=== PATIENT | female | born 1980 | race Hispanic/Latino ===

== ENCOUNTER 2017-06-24 15:15 | Emergency (ER) | payer OTHER ==
[~2017-06-24] VITALS: Ht 152.4 cm; Wt 81.6 kg
[2017-06-24] MEDS ORDERED: ACETAMINOPHEN 325 MG/10 ML UDC PO PRN (15:45)
[2017-06-24] MEDS ORDERED: ACETAMINOPHEN 325 MG TAB ONE (19:27)
[2017-06-24] MEDS ORDERED: SODIUM CHLORIDE 0.9% 1000ML 1,000 ML IV SCH (19:30)
[2017-06-24 19:43] LABS: BASOPHILS % 0.2 % (0.0-1.0); EOSINOPHILS # (AUTO) 0.1 (0.0-0.4); EOSINOPHILS % 0.6 % (0.0-6.0); HEMATOCRIT 38.9 % (34.2-44.1); HEMOGLOBIN 12.4 g/dL (12.0-16.0); LYMPHOCYTES # (AUTO) 1.9 (1.0-3.2); LYMPHOCYTES % 21.8 % (18.0-39.1); MEAN CORPUSCULAR HEMOGLOBIN 25.1 pg (28-32); MEAN CORPUSCULAR HGB CONC 31.9 g/dL (31-35); MEAN CORPUSCULAR VOLUME 78.6 fL (81-99); MONOCYTES # (AUTO) 0.8 (0.2-0.8); MONOCYTES % 9.5 % (4.4-11.3); NEUTROPHILS # (AUTO) 5.8 (2.1-6.9); NEUTROPHILS % 67.3 % (38.7-80.0); PLATELET COUNT 279 x10e3/uL (140-360); RED BLOOD COUNT 4.95 x10e6/uL (3.6-5.1); RED CELL DISTRIBUTION WIDTH 14.6 % (11.7-14.4)
[2017-06-24 20:03] LABS: ALANINE AMINOTRANSFERASE 68 IU/L (0-55); ALBUMIN 3.5 g/dL (3.5-5.0); ALBUMIN/GLOBULIN RATIO 0.8 (0.8-2.0); ALKALINE PHOSPHATASE 91 IU/L (40-150); ANION GAP 13.4 mmol/L (8-16); BLOOD UREA NITROGEN 7 mg/dL (7-26); BUN/CREATININE RATIO 9 (6-25); CALCIUM 8.9 mg/dL (8.4-10.2); CARBON DIOXIDE 24 mmol/L (22-29); CHLORIDE 98 mmol/L (98-107); CREATININE, SERUM 0.78 mg/dL (0.57-1.11); EST GLOMERULAR FILTRATION RATE > 60 ML/MIN (60-); GLUCOSE 202 mg/dL (74-118); POTASSIUM 3.4 mmol/L (3.5-5.1); SODIUM 132 mmol/L (136-145)
[2017-06-24] MEDS ORDERED: SODIUM CHLORIDE 0.9% 50ML 50 ML ONE (22:43)
[2017-06-24] MEDS ORDERED: IOPAMIDOL 370 MG/ML 200 ML INFUS..BTL INJ ONE (22:43)
--- NOTE | 2017-06-24 22:46 | Diagnostic Imaging Report ---
History: Neck swelling r/o peritonsillar abscess. Comparison studies: None Technique: Axial, coronal and sagittal images from the skull base to the thoracic inlet. Coronal and sagittal images reconstructed from the axial data. Intravenous contrast: 100 cc of Omnipaque 300. Findings: Soft tissues: Prominent left palatine tonsill, without collection. Masses: None. Lymph nodes: Bilateral reactive level I and II lymph nodes. Vessels: Arteries and veins are patent. Glands (thyroid, parotid and submandibular): Normal in size and symmetric. No masses. Orbits: No abnormalities. Paranasal sinuses: Clear. Temporal bones: No abnormalities. Skull base and facial bones: Intact. Cervical spine: Normal IMPRESSION: 1. Left tonsilitis without collection. Bilateral reactive level I and II lymph nodes. Signed by: DR Denny Juarez M.D. on 06/24/2017 10:43 PM
[2017-06-24] MEDS ORDERED: PENICILLIN G BENZATHINE LA 1.2 MU TBX IM STA (23:07)
[2017-06-24 23:08] VITALS: BP 112/76
== END 2017-06-24 23:52 | disposition home or self-care (01) ==
LOC: ER 15:15
DX: J03.00 Acute streptococcal tonsillitis, unspecified (principal); E11.9 Type 2 diabetes mellitus without complications; J45.909 Unspecified asthma, uncomplicated
CPT/HCPCS: 36415; 70491; 80053; 83518; 84702; 85025; 86308; 87070; 96360; 99284; J0561; J7030; Q9967

== ENCOUNTER 2017-11-06 13:23 | Emergency (ER) | payer OTHER ==
[~2017-11-06] VITALS: Ht 165.1 cm; Wt 92.5 kg
--- OUTSIDE RECORDS SUMMARY | 2017-11-06 13:26 | XMS REPORT ---
Author Author [facility] Address Unknown Phone Unavailable Care Team Providers Care Chronometer Adjuster Name Role Phone JASSON WEI Unavailable Unavailable Problems This patient has no known problems. Allergies, Adverse Reactions, Alerts This patient has no known allergies or adverse reactions. Medications This patient has no known medications. Results Test Description Test Time Test Comments Text Results Atomic Results Result Comments CT SOFT TISSUE NECK [address] [place] [id number] [place] [address] Patient Name: PABLO SAMUELS MR #: [id number] : 1980 Age/Sex: 37/F Req # : [id number] Adm Physician: Ordered by: AMMY OBANDO Report #: [id number] Location: ER Room/Bed: Procedure: [id number] CT/CT SOFT TISSUE NECK W Exam Date: Exam Time : REPORT STATUS: Signed History: Neck swelling r/o peritonsillar abscess. Comparison studies: None Technique: Axial, coronal and sagittal images from the skull base to the thoracic inlet. Coronal and sagittal images reconstructed from the axial data. Intravenous contrast: 100 cc of Omnipaque 300. Findings: Soft tissues: Prominent left palatine tonsill, without collection. Masses: None. Lymph nodes: Bilateral reactive level I and II lymph nodes. Vessels: Arteries and veins are patent. Glands (thyroid, parotid and submandibular): Normal in size and symmetric. No masses. Orbits: No abnormalities. Paranasal sinuses: Clear. Temporal bones: No abnormalities. Skull base and facial bones: Intact. Cervical spine: Normal IMPRESSION: 1. Left tonsilitis without collection. Bilateral reactive level I and II lymph nodes. Signed by: DR Denny Juarez M.D. on 06/24/2017 10:43 PM Dictated By: DENNY CAMEJO MD 42 Transcribed By: ESTEFANI on 06/24/172242 COPY TO: AMMY OBANDO
[2017-11-06] MEDS ORDERED: ONDANSETRON HCL INJ 2 MG/ML VIAL IV STA (14:17)
[2017-11-06] MEDS ORDERED: SODIUM CHLORIDE 0.9% 1000ML 1,000 ML IV STA ×2 (14:17→15:34)
[2017-11-06 14:30] LABS: BASOPHILS % 0.1 % (0.0-1.0); EOSINOPHILS % 0.4 % (0.0-6.0); HEMATOCRIT 37.2 % (34.2-44.1); HEMOGLOBIN 11.7 g/dL (12.0-16.0); LYMPHOCYTES # (AUTO) 0.7 (1.0-3.2); LYMPHOCYTES % 6.8 % (18.0-39.1); MEAN CORPUSCULAR HEMOGLOBIN 24.2 pg (28-32); MEAN CORPUSCULAR HGB CONC 31.5 g/dL (31-35); MONOCYTES # (AUTO) 0.3 (0.2-0.8); MONOCYTES % 3.1 % (4.4-11.3); NEUTROPHILS # (AUTO) 9.1 (2.1-6.9); NEUTROPHILS % 88.8 % (38.7-80.0); PLATELET COUNT 256 x10e3/uL (140-360); RED BLOOD COUNT 4.83 x10e6/uL (3.6-5.1); RED CELL DISTRIBUTION WIDTH 14.3 % (11.7-14.4)
[2017-11-06] MEDS ORDERED: ONDANSETRON HCL 4 MG ORAL DISINTEGRATING TAB PO ONE (14:30)
[2017-11-06 14:42] LABS: ALANINE AMINOTRANSFERASE 15 IU/L (0-55); ALBUMIN/GLOBULIN RATIO 0.8 (0.8-2.0); ALKALINE PHOSPHATASE 83 IU/L (40-150); ANION GAP 10.6 mmol/L (8-16); BLOOD UREA NITROGEN 7 mg/dL (7-26); BUN/CREATININE RATIO 11 (6-25); CARBON DIOXIDE 22 mmol/L (22-29); CHLORIDE 102 mmol/L (98-107); CREATININE, SERUM 0.65 mg/dL (0.57-1.11); EST GLOMERULAR FILTRATION RATE > 60 ML/MIN (60-); GLUCOSE 152 mg/dL (74-118); LIPASE 25 U/L (8-78); POTASSIUM 3.6 mmol/L (3.5-5.1); SODIUM 131 mmol/L (136-145)
[2017-11-06 14:44] LABS: BILIRUBIN,URINE NEGATIVE (NEGATIVE); CLARITY,URINE CLEAR (CLEAR); COLOR,URINE YELLOW (YELLOW); KETONES,URINE 1+ (NEGATIVE); LEUKOCYTE ESTERASE ,URINE TRACE (NEGATIVE); NITRITE,URINE NEGATIVE (NEGATIVE); PROTEIN,URINE DIPSTICK NEGATIVE (NEGATIVE); URINE UROBILINOGEN 0.2 mg/dL (0.2 - 1)
[2017-11-06 14:45] LABS: PREGNANCY TEST, URINE POSITIVE (NEGATIVE)
[2017-11-06 15:06] LABS: BACTERIA,URINE FEW /HPF; RBC,URINE 0-5 /HPF (0-5)
[2017-11-06 15:07] LABS: EPITHELIAL CELLS,URINE FEW /LPF
--- NOTE | 2017-11-06 17:39 | Diagnostic Imaging Report ---
EXAM: Right Upper Quadrant Ultrasound INDICATION: Abdominal pain. 15 weeks . COMPARISON: None. TECHNIQUE: Transverse and longitudinal images of the right upper abdomen were obtained. FINDINGS: Liver: Size: 13.9 cm in the right midclavicular line, normal Appearance: Slightly increased echogenicity, smooth contour Mass: No focal masses Gallbladder: Stones/Sludge: None Wall: 0.3 cm Appearance: No wall thickening, pericholecystic fluid or hydrops. Sonographic Ovalles's Sign: Negative Bile Ducts: Intrahepatic Ducts: No dilatation Extrahepatic Ducts: Common bile duct measures 0.3 cm, no dilatation Pancreas: Not well visualized due to shadowing from overlying bowel gas. Visualized portions of the pancreatic head and neck are unremarkable. Kidneys: Length: Right 13.2 cm Echogenicity: Normal Collecting System: No hydronephrosis Stone: None Cyst/Mass: None Vessels: Aorta: Visualized portions are normal Inferior Vena Cava: Visualized portions are normal Main Portal Vein: 0.9 cm, normal size with hepatopetal flow. Free Fluid: No ascites or pleural effusion IMPRESSION: No acute right upper quadrant abnormality. Mildly increased echogenicity of the hepatic parenchyma may represent mild steatosis. Signed by: Dr. David Leslie M.D. on 11/06/2017 5:35 PM
--- NOTE | 2017-11-06 17:48 | Diagnostic Imaging Report ---
EXAM: US OB COMPLETE SINGLE GEST DATE: 11/06/2017 12:00 AM INDICATION: Abdominal pain. COMPARISON: None TECHNIQUE: Multiple transabdominal images of the uterus and fetus were obtained using elliott-scale, color Doppler and M-mode. FINDINGS: LMP 07/13/2017 A1 Type of Gestation: Torres GA by LMP: 16w 4d GA by current U/S: 15w 4d +/- 1 week and 1 day Measurements: BPD 29.9 mm 15w 3d HC 107.9 mm 15w 1d AC 93.8 mm 15w 4d FL 19.7 mm 15w 6d Estimated Weight: 130.36 g, +/- 19.55 g 4.8% Visualized Anatomy: Very limited visualization. Four chamber cardiac view: Not well seen. Regular cardiac rhythm: Seen. Stomach: Not well visualized Kidneys:Not well visualized Bladder:Not well visualized/not filled. 3-vessel cord: Not visualized. movement: Observed. Position: Variable. Breech presentation at the time of the exam. Placental Location: Posterior Cervical Length: 4.2 cm Amniotic Fluid Index: 12.21 cm Heart Rate: 173 bpm, mildly tachycardic. IMPRESSION: Single living intrauterine . Estimated sonographic gestational age: 15 weeks, 4 days +/- 1 week and 1 day Recommend obstetric follow-up, and follow-up ultrasound for anatomy at 20 weeks. Signed by: Dr. David Leslie M.D. on 11/06/2017 5:44 PM
[2017-11-06] MEDS ORDERED: AMOXICILLIN/CLAVULANATE K 875 MG TAB PO STA (18:28)
== END 2017-11-06 19:01 | disposition home or self-care (01) ==
LOC: ER 13:23
DX: O23.42 Unspecified infection of urinary tract in pregnancy, second trimester (principal); R10.84 Generalized abdominal pain
CPT/HCPCS: 36415; 76705; 76805; 80053; 81001; 81025; 83690; 85025; 86900; 87086; 99284; J7030

== ENCOUNTER 2019-02-27 17:57 | Emergency (ER) | payer OTHER ==
[~2019-02-27] VITALS: Ht 165.1 cm; Wt 92.5 kg
--- OUTSIDE RECORDS SUMMARY | 2019-02-27 18:00 | XMS REPORT | Continuity of Care Document ---
Author Author [email or web address] Address Unknown Phone Unavailable Care Team Providers Care Fare Register Repairer Name Role Phone [facility] Unavailable Unavailable Problems Problem Status Onset Date Classification Date Reported Comments Source DX: N92.0=EXCESSIVE AND FREQUENT MENSTRU Active 01/19/2016 [facility] Diabetes mellitus type 2 (disorder) Active 06/10/2009 Problem 02/04/2016 [facility] Patient currently (finding) Resolved 12/07/1999 Problem 02/04/2016 [facility] Asthma (disorder) Active 1982 Problem 02/04/2016 [facility] Medications No Data Provided for This Section Allergies, Adverse Reactions, Alerts No Known Medication Allergies Immunizations Immunization Date Given Site Status Last Updated Comments Source diphtheria/pertussis, acel/tetanus adult 06/17/2013 Right Deltoid completed [facility] pneumococcal 23-valent vaccine 06/17/2013 Left Deltoid completed [facility] influenza virus vaccine, inactivated 06/17/2013 Right Deltoid completed [facility] pneumococcal 23-valent vaccine 06/15/2013 Not Given [facility] Results Order Name Results Value Reference Range Date Interpretation Comments Source Automated blood basophil count (count/volume) Automated blood basophil count (count/volume) 0.0 0.0 - 0.1 11/06/2017 [facility] Automated blood basophil count as percentage of total leukocytes Automated blood basophil count as percentage of total leukocytes 0.1 0.0 - 1.0 11/06/2017 [facility] Automated blood eosinophil count Automated blood eosinophil count 0.0 0.0 - 0.4 11/06/2017 [facility] Automated blood eosinophil count as percentage of total leukocytes Automated blood eosinophil count as percentage of total leukocytes 0.4 0.0 - 6.0 11/06/2017 [facility] Automated blood hematocrit (volume fraction) Automated blood hematocrit (volume fraction) 37.2 34.2 - 44.1 11/06/2017 [facility] Automated blood lymphocyte count as percentage ot total leukocytes Automated blood lymphocyte count as percentage ot total leukocytes 6.8 18.0 - 39.1 11/06/2017 [facility] Automated blood monocyte count as percentage of total leukocytes Automated blood monocyte count as percentage of total leukocytes 3.1 4.4 - 11.3 11/06/2017 [facility] Automated blood neutrophil count Automated blood neutrophil count 9.1 2.1 - 6.9 11/06/2017 [facility] Automated blood platelet count (count/volume) Automated blood platelet count (count/volume) 256 140 - 360 11/06/2017 [facility] Automated blood segmented neutrophil count as percentage of total leukocytes Automated blood segmented neutrophil count as percentage of total leukocytes 88.8 38.7 - 80.0 11/06/2017 [facility] Automated erythrocyte mean corpuscular hemoglobin (mass per erythrocyte) Automated erythrocyte mean corpuscular hemoglobin (mass per erythrocyte) 24.2 28 - 32 11/06/2017 [facility] Automated erythrocyte mean corpuscular hemoglobin concentration measurement (mass/volume) Automated erythrocyte mean corpuscular hemoglobin concentration measurement (mass/volume) 31.5 31 - 35 11/06/2017 [facility] Automated erythrocyte mean corpuscular volume Automated erythrocyte mean corpuscular volume 77.0 81 - 99 11/06/2017 [facility] Automated urine sediment leukocyte count by microscopy (number/high power field) Automated urine sediment leukocyte count by microscopy (number/high power field) <10 0 - 5 11/06/2017 [facility] Bacteria detection in urine sediment by light microscopy Bacteria detection in urine sediment by light microscopy FEW NONE 11/06/2017 [facility] Blood erythrocytes automated count (number/volume) Blood erythrocytes automated count (number/volume) 4.83 3.6 - 5.1 11/06/2017 [facility] Blood hemoglobin measurement (moles/volume) Blood hemoglobin measurement (moles/volume) 11.7 12.0 - 16.0 11/06/2017 [facility] Blood leukocytes automated count (number/volume) Blood leukocytes automated count (number/volume) 10.22 4.8 - 10.8 11/06/2017 [facility] Blood lymphocytes count (number/volume) Blood lymphocytes count (number/volume) 0.7 1.0 - 3.2 11/06/2017 [facility] Blood monocytes automated count (number/volume) Blood monocytes automated count (number/volume) 0.3 0.2 - 0.8 11/06/2017 [facility] Epithelial cells detection in urine sediment by light microscopy Epithelial cells detection in urine sediment by light microscopy FEW NONE 11/06/2017 [facility] Erythrocytes detection in urine sediment by light microscopy Erythrocytes detection in urine sediment by light microscopy <5 0 - 5 11/06/2017 [facility] Estimated glomerular filtration rate (GFR) determination Estimated glomerular filtration rate (GFR) determination >60 60 11/06/2017 [facility] Glucose measurement Glucose measurement 152 74 - 118 11/06/2017 [facility] Plasma globulin measurement (mass/volume) Plasma globulin measurement (mass/volume) 4.0 2.3 - 3.5 11/06/2017 [facility] Serum or plasma alanine aminotransferase measurement (enzymatic activity/volume) Serum or plasma alanine aminotransferase measurement (enzymatic activity/volume) 15 0 - 55 11/06/2017 [facility] Serum or plasma albumin measurement (mass/volume) Serum or plasma albumin measurement (mass/volume) 3.0 3.5 - 5.0 11/06/2017 [facility] Serum or plasma albumin/globulin mass ratio Serum or plasma albumin/globulin mass ratio 0.8 0.8 - 2.0 11/06/2017 [facility] Serum or plasma alkaline phosphatase measurement (enzymatic activity/volume) Serum or plasma alkaline phosphatase measurement (enzymatic activity/volume) 83 40 - 150 11/06/2017 [facility] Serum or plasma anion gap Serum or plasma anion gap 10.6 8 - 16 11/06/2017 [facility] Serum or plasma calcium measurement (mass/volume) Serum or plasma calcium measurement (mass/volume) 9.0 8.4 - 10.2 11/06/2017 [facility] Serum or plasma carbon dioxide, total measurement (moles/volume) Serum or plasma carbon dioxide, total measurement (moles/volume) 22 22 - 29 11/06/2017 [facility] Serum or plasma chloride measurement (moles/volume) Serum or plasma chloride measurement (moles/volume) 102 98 - 107 11/06/2017 [facility] Serum or plasma creatinine measurement (mass/volume) Serum or plasma creatinine measurement (mass/volume) 0.65 0.57 - 1.11 11/06/2017 [facility] Serum or plasma lipase measurement (enzymatic activity/volume) Serum or plasma lipase measurement (enzymatic activity/volume) 25 8 - 78 11/06/2017 [facility] Serum or plasma potassium measurement (moles/volume) Serum or plasma potassium measurement (moles/volume) 3.6 3.5 - 5.1 11/06/2017 [facility] Serum or plasma protein measurement (mass/volume) Serum or plasma protein measurement (mass/volume) 7.0 6.5 - 8.1 11/06/2017 [facility] Serum or plasma sodium measurement (moles/volume) Serum or plasma sodium measurement (moles/volume) 131 136 - 145 11/06/2017 [facility] Serum or plasma total bilirubin measurement (mass/volume) Serum or plasma total bilirubin measurement (mass/volume) 0.6 0.2 - 1.2 11/06/2017 [facility] Serum or plasma urea nitrogen measurement (mass/volume) Serum or plasma urea nitrogen measurement (mass/volume) 7 7 - 26 11/06/2017 [facility] Serum or plasma urea nitrogen/creatinine mass ratio Serum or plasma urea nitrogen/creatinine mass ratio 11 6 - 25 11/06/2017 [facility] Specific gravity of Urine by Test strip Specific gravity of Urine by Test strip 1.025 1.010 - 1.025 11/06/2017 [facility] Urine clarity Urine clarity CLEAR CLEAR 11/06/2017 [facility] Urine color determination Urine color determination YELLOW YELLOW 11/06/2017 [facility] Urine erythrocytes detection Urine erythrocytes detection NEGATIVE NEGATIVE 11/06/2017 [facility] Urine glucose detection Urine glucose detection 2+ NEGATIVE 11/06/2017 [facility] Urine human chorionic gonadotropin (hCG) detection Urine human chorionic gonadotropin (hCG) detection POSITIVE NEGATIVE 11/06/2017 [facility] Urine ketones detection by automated test strip Urine ketones detection by automated test strip 1+ NEGATIVE 11/06/2017 [facility] Urine leukocyte esterase detection by dipstick Urine leukocyte esterase detection by dipstick TRACE NEGATIVE 11/06/2017 [facility] Urine nitrite detection Urine nitrite detection NEGATIVE NEGATIVE 11/06/2017 [facility] Urine pH measurement by automated test strip Urine pH measurement by automated test strip 6.5 5 - 7 11/06/2017 [facility] Urine protein measurement by test strip (mass/volume) Urine protein measurement by test strip (mass/volume) NEGATIVE NEGATIVE 11/06/2017 [facility] Urine total bilirubin measurement (mass/volume) Urine total bilirubin measurement (mass/volume) NEGATIVE NEGATIVE 11/06/2017 [facility] Urine urobilinogen measurement by test strip (mass/volume) Urine urobilinogen measurement by test strip (mass/volume) 0.2 0.2 - 1 11/06/2017 [facility] Red Cell Distribution Width 14.3 11.7 - 14.4 11/06/2017 [facility] IM GRANULOCYTES % 0.8 0.0 - 1.0 11/06/2017 [facility] Absolute Immature Granulocyte (auto 0.08 0 - 0.1 11/06/2017 [facility] Aspartate Amino Transf (AST/SGOT) 15 5 - 34 11/06/2017 [facility] Serum heterophile antibody titer by latex agglutination Serum heterophile antibody titer by latex agglutination NEGATIVE NEGATIVE 06/24/2017 [facility] Serum or plasma choriogonadotropin ( test) detection Serum or plasma choriogonadotropin ( test) detection NEGATIVE NEGATIVE 06/24/2017 [facility] Streptococcus pyogenes antigen detection in throat Streptococcus pyogenes antigen detection in throat NEGATIVE NEGATIVE 06/24/2017 [facility] Pathology Reports No Data Provided for This Section Diagnostic Reports Report Value Date Source Pelvis Transvaginal US Clinical Indication: 35-year-old female with LMP of 12/13/2015 who is experiencing irregular periods; Comparison: None US PELVIS Technique: Grayscale, color and Doppler transabdominal and transvaginal imaging of the pelvis was performed with standard technique. FINDINGS: TRANSABDOMINAL PELVIC ULTRASOUND: UTERUS: The transabdominal pelvic ultrasound evaluation of the uterus shows anteverted uterus. The uterine parenchyma is not well assessed on the transabdominal pelvic ultrasound. OVARIES: The ovaries are not well seen on the transabdominal portion of the exam, related to bowel gas in the pelvis. OTHER FINDINGS: The transabdominal sonographic images show no free fluid in the pelvic cul-de-sac. IMPRESSION: 1. Limited assessment of the uterine parenchyma and ovaries on the transabdominal pelvic ultrasound, related to bowel gas in the pelvis. This necessitated a pelvic transvaginal ultrasound. Recommend correlation with the transvaginal pelvic ultrasound report. TRANSVAGINAL PELVIC ULTRASOUND: UTERUS: The pelvic transvaginal sonographic images show normal uterine contour and morphology. The uterus measures 8 x 3.9 x 5.6 cm. There is normal parenchymal echotexture. The endometrial stripe measures 8 mm in thickness. A few small nabothian cysts in the cervix. OVARIES: The transvaginal pelvic sonographic images show that the right ovary measures 2.2 x 1.5 x 1.6 cm and the left ovary measures 3 x 2.5 x 2.5 cm. There is normal ovarian contour and morphology. There are no adnexal masses. The limited Doppler images show normal bilateral ovarian blood flow. OTHER FINDINGS: The transvaginal sonographic images show no free fluid in the pelvic cul-de-sac. If there is further concern, followup pelvic sonography or MRI of the pelvis may be performed. IMPRESSION: 1. Unremarkable transvaginal pelvic ultrasound. SL: [id number] 02/01/2016 [facility] Consultation Notes No Data Provided for This Section Discharge Summaries No Data Provided for This Section History and Physicals No Data Provided for This Section Vital Signs No Data Provided for This Section Encounters Location Location Details Encounter Type Encounter Number Reason For Visit Attending Provider ADM Date DC Date Status Source [facility] [id number] Aileen Tomas 02/01/2016 02/02/2016 [facility] Departed Emergency Room [id number] JASSON WEI MD 06/24/2017 06/24/2017 [facility] Departed Emergency Room [id number] KAMRYN DUVAL MD 11/06/2017 11/06/2017 [facility] Procedures Procedure Code Date Perfomer Comments Source US gallbladder [id number] 11/06/2017 [facility] Complete obstetrical ultrasound, single fetus, second or third trimester [id number] 11/06/2017 [facility] Computed tomography of soft tissues of neck with contrast [id number] [facility] Dil[facility] and curettage [id number] 06/10/2001 [facility] Assessment and Plan No Data Provided for This Section Plan of Care Plan of Care Date Source Discharge Date 11/06/17 7:01pm Disposition HOME, SELF-CARE Condition at Discharge Stable Instructions/Education Provided Urinary Tract Infection - Women Forms Provided Work/School Excuse Prescriptions See Medication Section Additional Instructions/Education Follow up with Dr. Christianson. No strenuous activity. Rest as much as possible. Avoid sexual activity. Pelvic rest until cleared by Ob. Drink plenty of fluids. No smoking, no alcohol. Take medications as directed: -Zofran 4mg one tab by mouth every 6hrs as needed for nausea/vomiting. -Augmentin 875 one tab by mouth every 12hours x7days. -May take over the counter Acetaminophen as needed for fever or pain, take as directed on package. 11/06/2017 [facility] Social History Social History Date Source Smoking Status Start Date Stop Date Never Smoker 11/06/2017 [facility] Social History TypeResponse Substance Abuse 1 Sexual Sexually active: Yes. Other Sexual Concerns: none.2 Exercise Exercise frequency: 5-6 times/week. Exercise type: Walking. Employment/School Status: Employed. Alcohol 3 Smoking Status Never smoker; Exposure to Tobacco Smoke None; Cigarette Smoking Last 365 Days No; Reg Smoking Cessation Counseling No [id number] 05/16/2013 [facility] Family History No Data Provided for This Section Advance Directives Order Name Results Value Date Source Advance Directives Advance Directives Directive Response Recorded Date/Time Does the patient have an advance directive? No 01/09/09 7:26am If yes, is advance directive on file with [facility]? No 01/09/09 7:26am If not on file with [facility] will patient provide a copy? No 08/14/16 12:40am Do you have a Directive to Physician? No 11/06/17 1:51pm Do you have a Medical Power of Combination Worker? No 11/06/17 1:51pm Do you have an out of hospital Do Not Resuscitate Order? No 11/06/17 1:51pm Do you have any special needs we should be aware of? No 11/06/17 1:51pm Do you have a support person here with you today? Yes 11/06/17 1:51pm Did patient receive Notice of Privacy Practices? Yes 11/06/17 1:51pm Did patient receive patient rights and responsibilities? Yes 11/06/17 1:51pm 11/06/2017 [facility] Functional Status No Data Provided for This Section
--- OUTSIDE RECORDS SUMMARY | 2019-02-27 18:00 | XMS REPORT | Summary of Care ---
Author Author [facility] Organization [facility] Address Unknown Phone Unavailable Encounter HQ Katyar_irina(FIN) [id number] Date(s): 02/01/16 - 02/01/16 [facility] [address] [place] [address]- Discharge Disposition: Home or Self Care Attending Physician: Aileen Tomas MD Referring Physician: Aileen Tomas MD Vital Signs No data available for this section Problem List Condition Effective Dates Status Health Status Informant Asthma(Confirmed) 1982 Active Diabetes mellitus - 2009 Active adult onset(Confirmed) (Confirmed) 12/07/99 - 08/08/00 Resolved (Confirmed) 09/22/12 - 06/14/13 Resolved Allergies, Adverse Reactions, Alerts Substance Reaction Severity Status NKDA Active Medications No data available for this section Results No data available for this section Immunizations Given and Recorded Vaccine Date Status Refusal Reason diphtheria/pertussis, acel/tetanus adult 06/17/13 Given influenza virus vaccine, inactivated 06/17/13 Given pneumococcal 23-valent vaccine 06/17/13 Given Not Given Vaccine Date Status Refusal Reason pneumococcal 23-valent vaccine 06/15/13 Not Given Patient Refuses Procedures Procedure Date Related Diagnosis Body Site D&C - Dilatation and curettage 2001 Social History Social History Type Response Substance Abuse 1 Sexual Sexually active: Yes. Other Sexual Concerns: none.2 Exercise Exercise frequency: 5-6 times/week. Exercise type: Walking. Employment/School Status: Employed. Alcohol 3 Smoking Status Never smoker; Exposure to Tobacco Smoke None; Cigarette Smoking Last 365 Days No; Reg Smoking Cessation Counseling No 1none 2none 3none Assessment and Plan No data available for this section
[2019-02-27] MEDS ORDERED: HYDROCODONE/APAP 5MG-325MG TAB PO ONE (18:30)
[2019-02-27] MEDS ORDERED: CLINDAMYCIN PHOS 600 MG/ 4 ML VIAL IM ONE (18:30)
== END 2019-02-27 19:05 | disposition home or self-care (01) ==
LOC: ER 17:57
DX: L02.415 Cutaneous abscess of right lower limb (principal); L03.115 Cellulitis of right lower limb
CPT/HCPCS: 99283